=== PATIENT | male | born 1965 | race Caucasian/White ===

== ENCOUNTER 2021-10-02 20:47 | Emergency (ER) | payer MEDICAID ==
[~2021-10-02] VITALS: Ht 177.8 cm; Wt 118.8 kg
[2021-10-02] MEDS ORDERED: DIPHENHYDRAMINE HCL 25 MG CAPSULE PO ONE (22:30)
[2021-10-02] MEDS ORDERED: PERM60CR4 TP (22:37)
[2021-10-02] MEDS ORDERED: DIPH25 PO (22:37)
[2021-10-02 22:41] VITALS: BP 142/78
== END 2021-10-02 22:51 | disposition home or self-care (01) ==
LOC: EDH 20:47
DX: B86 Scabies (principal); Z79.899 Other long term (current) drug therapy
CPT/HCPCS: 99282; Q0163